=== PATIENT | male | born 1950 | race Caucasian/White ===

== ENCOUNTER 2024-12-19 06:48 | Day surgery (SDC) | payer OTHER ==
[~2024-12-19] VITALS: Ht 177.8 cm; Wt 70.5 kg
[~2024-12-19 06:48] MED LIST: BUDE10.7 PO; FAMO40TA7 PO; IPRA3AMP24 IH; LOSA-381 PO; MONT-40 PO; PRED-729 PO; SODIUM CHLORIDE 0.9% 1,000 ML ONE
[2024-12-19] MEDS ORDERED: ALBUTEROL SULFATE 2.5 MG/0.5 ML NEB SOLUTION NEB ONE (06:49)
[2024-12-19] MEDS ORDERED: LIDOCAINE 2% 11 ML JELLY TP ONE (06:49)
[2024-12-19] MEDS ORDERED: BENZOCAINE 20% 50 MCG/SPRAY 57 GM TP ONE (06:49)
[2024-12-19] MEDS ORDERED: LIDOCAINE 4% 50 ML SOLUTION TP ONE (06:49)
[2024-12-19] MEDS: SODIUM CHLORIDE 0.9% 1,000 ML IV ONE (07:54)
[2024-12-19] MEDS ORDERED: DAPA1TAB3 PO (07:58)
[2024-12-19 08:01] LABS: GLUCOMETER DEV NAME(LOC) SDS.; GLUCOSE,POINT OF CARE 415 MG/DL (70-110)
[2024-12-19] MEDS ORDERED: MIDAZOLAM HCL 2 MG/2 ML VIAL ONE (08:41)
[2024-12-19] MEDS ORDERED: FentaNYL CITRATE PF 100 MCG/2 ML VIAL ONE (08:41)
[2024-12-19 10:06] LABS: GLUCOMETER DEV NAME(LOC) SDS.; GLUCOSE,POINT OF CARE 377 MG/DL (70-110)
[2024-12-19 10:34] VITALS: PULSE 96; RESP 22; O2SAT 100
[2024-12-19] MEDS ORDERED: MethylPREDNISolone SOD SUCC 40 MG/ML VIAL IVP ONE (10:40)
[2024-12-19 11:55] LABS: GLUCOMETER DEV NAME(LOC) SDS.; GLUCOSE,POINT OF CARE 382 MG/DL (70-110)
[2024-12-19 11:55] LABS: GLUCOMETER DEV NAME(LOC) SDS.; GLUCOSE,POINT OF CARE 323 MG/DL (70-110)
== END 2024-12-19 12:45 | disposition home or self-care (01) ==
LOC: SURGERY 06:48
PROVIDERS: ATTEND Internal Medicine Critical Care Medicine
DX: R05.3 Chronic cough (principal); J38.4 Edema of larynx; B37.0 Candidal stomatitis; R04.2 Hemoptysis; F17.210 Nicotine dependence, cigarettes, uncomplicated; Z98.41 Cataract extraction status, right eye; Z20.822 Contact with and (suspected) exposure to COVID-19; Z89.611 Acquired absence of right leg above knee; D64.9 Anemia, unspecified; J44.9 Chronic obstructive pulmonary disease, unspecified
CPT/HCPCS: 31623; 93005; 82962; 87206; 87101; 87220; 87070; 31624; 94640; 71045; 87015; J3010; J2250; J7030; 88108; J7613; Z7610